=== PATIENT | female | born 1970 | race Caucasian/White ===

== ENCOUNTER 2021-07-11 11:25 | Emergency (ER) | payer OTHER, SELFPAY ==
--- NOTE | ~2021-07-11 | CT_ITS ---
EXAMINATION: CT HEAD WITHOUT CONTRAST CLINICAL INFORMATION: Dizziness and increased blood pressure. Rule out bleed. COMPARISON: None TECHNIQUE: Contiguous axial imaging was performed from the skull base to vertex without intravenous administration of contrast. This CT examination was performed using dose optimization techniques as appropriate, variously including the following: *Automated exposure control *Adjustment of mA and/or kV according to patient size (this includes techniques or standardized protocols for targeted exams where dose is matched to indication/reason for exam; i.e. extremities or head) *Use of iterative reconstruction technique DLP: 637 mGy-cm FINDINGS: There is no evidence of acute intracranial hemorrhage or territorial infarction. No abnormal mass effect or midline shift is seen. Hanna to white matter differentiation is well preserved. No extra-axial fluid collections are identified. The ventricles are normal in size. There is no abnormal attenuation within the brain parenchyma. The osseous structures and soft tissues are normal. There is a small polyp or cyst in the left maxillary sinus. The mastoid air cells and visualized portions of the paranasal sinuses are otherwise clear. CT/CT head/brain wo con IMPRESSION: No acute intracranial findings..
--- NOTE | ~2021-07-11 | XR_ITS ---
EXAMINATION: XR CHEST CLINICAL INFORMATION: Chest pain COMPARISON: None TECHNIQUE: Frontal view of the chest was obtained. FINDINGS: No significant abnormality is noted involving the heart, lungs, mediastinum, bony thorax or soft tissues. XR/XR chest 1V IMPRESSION: Unremarkable examination.
[2021-07-11 11:43] VITALS: BP 160/91; PULSE 88; RESP 18; TEMP 36.2; O2SAT 98; BMI 27.9
--- NOTE | 2021-07-11 11:48 | ECG_ITS ---
Test Reason : hbp Blood Pressure : / mmHG Vent. Rate : 067 BPM Atrial Rate : 067 BPM P-R Int : 148 ms QRS Dur : 082 ms QT Int : 418 ms P-R-T Axes : 041 -42 -08 degrees QTc Int : 441 ms Normal sinus rhythm Left axis deviation Minimal voltage criteria for LVH, may be normal variant ( R in aVL ) Nonspecific ST and T wave abnormality Abnormal ECG No previous ECGs available Referred By: Generic ED Physician Electronically Signed By:Jagdish Kerr
[2021-07-11 12:40] LABS: MANUAL DIFF FLAG NO
[2021-07-11 12:48] LABS: Basophils Percent Auto 0.7 % (0-2); Eosinophils Absolute Auto 0.1 X10*3/uL (0.0-0.4); Eosinophils Percent Auto 1.6 % (0-4); Hematocrit 34.8 % (37.0-47.0); Hemoglobin 11.3 g/dl (12.0-16.0); Imm Gran Abs Auto 0.01 X10*3/uL (0.00-0.03); Imm Gran Pct Auto 0.2 % (0.0-0.4); Lymphocytes Absolute Auto 2.1 X10*3/uL (1.2-4.9); Lymphocytes Percent Auto 37.5 % (20-40); Mean Corpuscular HGB Conc 32.5 g/dl (31.0-35.0); Mean Corpuscular Hemoglobin 26.8 pg (27.0-33.0); Mean Corpuscular Volume 82.7 fL (80.0-98.0); Mean Platelet Volume 11.6 fL (9.4-12.3); Monocytes Absolute Auto 0.5 X10*3/uL (0.1-1.2); Monocytes Percent Auto 9.2 % (2-11); Neutrophils Absolute Auto 2.9 x10*3/uL (2.0-8.3); Neutrophils Percent Auto 50.8 % (45-73); Platelet Count 235 X10*3/uL (160-400); Red Blood Count 4.21 X10*6/uL (4.20-5.50); Red Cell Distribution Width 13.9 % (11.0-16.0); White Blood Count 5.6 X10*3/uL (4.8-10.8)
[2021-07-11 12:59] LABS: Anion Gap 13 (12-20); Blood Urea Nitrogen 5 mg/dL (9-16); Carbon Dioxide 26 mmol/L (22-29); Chloride 103 mmol/L (96-108); Creatinine Clr Calc Pharmacy 91.7; Estimated Glomerular Filt Rate > 60; Glucose Random 92 mg/dL (60-115); Potassium 3.2 mmol/L (3.3-5.1); Sodium 139 mmol/L (135-145)
[2021-07-11 13:07] LABS: Troponin-I High Sensitivity 4.7 ng/L (<3.5-17.0)
[2021-07-11 13:22] VITALS: BP 180/96; PULSE 76; RESP 14; O2SAT 98
--- NOTE | 2021-07-11 13:26 | ED_ITS ---
HPI - Chest Pain General Chief Complaint: Chest Pain Stated Complaint: HBP Time Seen by Provider: 07/11/21 13:25 Source: patient Mode of arrival: ambulatory Limitations: no limitations History of Present Illness HPI narrative: 51-year-old female came in for evaluation of high blood pressure reading at home. Patient is otherwise healthy no past health issue lately, patient noted that her blood pressure been reading high, yesterday patient felt lightheadedness and dizzy with mild headache, and chest pain. No blurry vision. Patient is not known to have high blood pressure her show however she is scheduled to see her PCP in a week to discuss the need of medication. Patient has no symptoms currently in the emergency department. Related Data Home Medications Medication Instructions Recorded Confirmed azelastine 0.05 % eye drops drp OPHTHALMIC (EYE) 07/11/21 azelastine 137 mcg (0.1 %) nasal 2 spray INTRANASAL BID 07/11/21 spray aerosol meloxicam 15 mg tablet 1 tab PO DAILY PRN 07/11/21 Allergies Allergy/AdvReac Type Severity Reaction Status Date / Time Penicillins Allergy Anaphylaxis Verified 07/11/21 11:46 Review of Systems Review of Systems: All other systems are reviewed and are negative Constitutional: Reports as per HPI and Reports no additional constitutional complaints Eyes: Reports as per HPI and Reports no additional eye complaints Reports system reviewed and no additional complaints, except as documented Cardiovascular: Reports as per HPI and Reports no additional cardiovascular c omplaints Respiratory: Reports as per HPI and Reports no additional respiratory complaints Gastrointestinal: Reports as per HPI and Reports no additional gastrointestinal complaints Genitourinary: Reports no additional female genitourinary complaints Musculoskeletal: Reports no additional musculoskeletal complaints Skin/Breast: Reports system reviewed and no additional complaints, except as docu Psychiatric: Reports no additional psychiatric complaints Endocrine: Reports no additional endocrine complaints Hematologic/Lymphatic: Reports no additional hematologic/lymphatic complaints Allergic/Immunologic: Reports no additional allergic/immunologic complaints Reports system reviewed and no additional complaints, except as documented and Reports Abnormal speech present [facility] Past Medical History Medical History HTN (hypertension) Social History Social History Advance Directives: No Advance Directives Information Provided: Yes Physical Exam Vital Signs: Vital Signs: Last Vital Signs Temp 98.6 F 07/11/21 15:00 Pulse 75 07/11/21 15:00 Resp 15 07/11/21 15:00 BP 144/91 H 07/11/21 15:00 Pulse Ox 99 07/11/21 15:00 BMI result Body Mass Index 27.9 vital signs have been reviewed as appeared to be correct. Blood pressure fady vated. Heart rate normal. Respiration rate normal. Temperature normal. Oxygen saturation normal. Appearance: Alert. Oriented X3. No acute distress. Head: Normal external exam. Normocephalic. Atraumatic. No Cameron signs noted. No raccoon eyes noted Eyes: PERRLA. EOMI. Conjunctiva and sclera normal. Eyelids normal. ENT: TM's Normal. Pharynx normal. Uvula midline. Moist mucous membranes. No trismus noted. No drooling noted. No muffled voice noted. Neck: Normal inspection. Neck supple. FROM. No adenopathy. Thyroid Normal. No meningeal signs. No neck mass noted. CVS: Normal heart rate and rhythm. Heart sound normal. No murmurs noted. Pulses normal throughout. Respiratory: No respiratory distress. Painless inspiration. Breath sounds normal. No wheezes/rales/rhonchi noted. Chest nontender. No accessory muscle usage noted or decreased air movement noted. Abdomen: Soft and nontender. Bowel sounds normal in all 4 quadrants. No distention noted. No organomegaly noted. No visible injury noted. Back: No CVA tenderness. Full range of motion noted. Skin: Skin warm and dry. Normal skin color. Normal skin turgor. No rashes/lesions/lacerations noted. Extremities: No lower extremity edema. Extremities exhibit normal range of motion. Extremities nontender. Neuro: Oriented X 3. Cranial nerve exam: II-XII are grossly intact No motor deficit. No sensory deficit. Reflexes normal. Course Course Course Narrative: Assessment and plan. 51-year-old female who has been having fluctuating blood pressure lately, patient scheduled to see her primary doctor in a week to discuss if patient need medication for blood pressure, felt lightheadedness and dizziness earlier today which resolving in the emergency department, initial blood pressure was elevated now is 144/91, patient had unremarkable workup including labs/EKG/head CT. Patient is scheduled to see her PCP in 8 days to discuss said the need of medication to control her blood pressure, patient was instructed to continue monitoring blood pressure and keep the appointment with her PCP. Labs are unremarkable except for mild anemia and a mild hypokalemia potassium was replaced in the emergency department. MDM - Chest Pain Lab Data Attestation: I reviewed the patient's lab results. Result diagrams: 07/11/21 12:27 07/11/21 12: Labs: Lab Results 07/11/21 07/11/21 07/11/21 Range/Units 12: 12: 12: WBC 5.6 (4.8-10.8) X10*3/uL RBC 4.21 (4.20-5.50) X10*6/uL Hgb 11.3 L (12.0-16.0) g/dl Hct 34.8 L (37.0-47.0) % MCV 82.7 (80.0-98.0) fL MCH 26.8 L (27.0-33.0) pg MCHC 32.5 (31.0-35.0) g/dl RDW 13.9 (11.0-16.0) % Plt Count 235 (160-400) X10*3/uL MPV 11.6 (9.4-12.3) fL Immature Gran % (Auto) 0.2 (0.0-0.4) % Neut % (Auto) 50.8 (45-73) % Lymph % (Auto) 37.5 (20-40) % [place] % (Auto) 9.2 (2-11) % Eos % (Auto) 1.6 (0-4) % Baso % (Auto) 0.7 (0-2) % Lymph # (Auto) 2.1 (1.2-4.9) X10*3/uL [place] # (Auto) 0.5 (0.1-1.2) X10*3/uL Eos # (Auto) 0.1 (0.0-0.4) X10*3/uL Baso # (Auto) 0.0 (0.0-0.2) X10*3/uL Abs Immat Gran (auto) 0.01 (0.00-0.03) X10*3/uL Absolute Neuts (auto) 2.9 (2.0-8.3) x10*3/uL Absolute Nucleated RBC 0.000 (0.0-0.012) X10*3/uL Nucleated RBC % (auto) 0.0 (0.0-0.2) /100WBC Sodium 139 (135-145) mmol/L Potassium 3.2 L (3.3-5.1) mmol/L Chloride 103 (96-108) mmol/L Carbon Dioxide 26 (22-29) mmol/L Anion Gap 13 (12-20) BUN 5 L (9-16) mg/dL Creatinine 0.73 (0.5-1.4) mg/dL Estim Creat Clear Calc 91.7 Estimated GFR > 60 Random Glucose 92 (60-115) mg/dL Calcium 9.0 (8.4-10.2) mg/dL Troponin I High Sens 4.7 (<3.5-17.0) ng/L Imaging Data Chest x-ray: Attestation: I personally reviewed and interpreted this imaging study as follows: Radiologist's impression: No acute pathology. Head CT: Attestation: I personally reviewed and interpreted this imaging study as follows: Radiologist's impression: no acute pathology. ECG Data ECG #1: Interpretation: Normal sinus rhythm at 67 beats per minutes, left axis deviation, normal intervals, no ST-T changes. Discharge Plan Discharge Clinical Impression: Hypertension, Hypokalemia Patient Disposition: Home, Self-Care Instructions: Hypertension (ED), Hypokalemia (ED) Prescriptions: No Action azelastine 0.05 % drops ophthalmic (eye) 0RF meloxicam 15 mg tablet 1 tab PO DAILY PRN (Reason: pain) 0RF azelastine 137 mcg (0.1 %) aerosol,spray 2 spray intranasal BID 0RF Referrals: Physician,Unknown J [Primary Care Provider] - Stand Alone Forms: Work/School Release
[2021-07-11 15:00] VITALS: BP 144/91; PULSE 75; RESP 15; TEMP 37; O2SAT 99
[2021-07-11] MEDS: Potassium Chloride Packet 20 MEQ PACKET 40 MEQ PO (16:04)
== END 2021-07-11 16:19 | disposition home or self-care (01) ==
PROVIDERS: Emergency Provider Emergency Medicine
DX: I10 Essential (primary) hypertension (principal); E87.6 Hypokalemia
CPT/HCPCS: 36415; 70450; 71045; 80048; 84484; 85025; 93005; 99284

== ENCOUNTER 2022-01-13 19:25 | Emergency (ER) | payer OTHER, SELFPAY ==
--- NOTE | ~2022-01-13 | XR_ITS ---
EXAMINATION: XR HAND, LEFT CLINICAL INFORMATION: Laceration COMPARISON: None TECHNIQUE: PA, lateral, and oblique views of the left hand. XR/XR hand LT min 3V FINDINGS/IMPRESSION: There is a laceration involving the palmar aspect of the second distal phalanx with accompanying avulsion fracture of the volar base of the distal phalanx without definite extension to the distal interphalangeal joint. No radiopaque foreign bodies.
[2022-01-13 19:34] VITALS: BP 146/86; PULSE 78; RESP 18; TEMP 36.4; O2SAT 97; BMI 27.9
--- NOTE | 2022-01-13 20:48 | ED_ITS ---
HPI - Wound/Laceration General Chief Complaint: Wound/Laceration Stated Complaint: left finger laceration Time Seen by Provider: 01/13/22 20:43 Source: patient Mode of arrival: ambulatory Limitations: no limitations History of Present Illness HPI narrative: 51-year-old female presents to the emergency department from urgent care following a laceration to the 1st finger on her left hand. Patient states that she injured her finger using an automatic zipper trimmer hand. Patient states she previously had numbness and tingling in her finger, however now states it is no longer numb, and it is now throbbing. She rates her pain an 8/10. Patient denies being on blood thinners. Up-to-date on tetanus shot. Patient denies fevers, chills, dizziness, chest pain, shortness of breath. Related Data Home Medications Medication Instructions Recorded Confirmed azelastine 0.05 % eye drops drp ophthalmic (eye) 07/11/21 azelastine 137 mcg (0.1 %) nasal 2 spray intranasal BID 07/11/21 spray aerosol meloxicam 15 mg tablet 1 tab PO DAILY PRN pain 07/11/21 Previous Rx's Medication Instructions Recorded clindamycin HCl 300 mg capsule 300 mg PO QID 7 days #28 caps 01/13/22 doxycycline hyclate 100 mg capsule 100 mg PO BID 10 days #20 caps 01/13/22 morphine 15 mg immediate release 15 mg PO BID PRN pain #10 tabs 01/13/22 tablet Allergies Allergy/AdvReac Type Severity Reaction Status Date / Time Penicillins Allergy Anaphylaxis Verified 07/11/21 11:46 Review of Systems Review of Systems: Constitutional : No Fever, No Chills, Cardiovascular : No Chest Pain, No SOB Respiratory : No Dyspnea Gastrointestinal : No abdominal pain Musculoskeletal : No Joint Swelling Skin : No rash, positive skin laceration Neuro : No Weakness, No Numbness Psych : No SI/HI Yes all other systems are reviewed and are negative [facility] Past Medical History Attestation statement: The following information was validated with the patient. Source: old records reviewed and nursing notes reviewed Medical History HTN (hypertension) Social History Social History Advance Directives: No Advance Directives Information Provided: No Physical Exam Vital Signs: Vital Signs: Last Vital Signs Temp 97.5 F 01/13/22 19:34 Pulse 78 01/13/22 19:34 Resp 18 01/13/22 19:34 BP 146/86 H 01/13/22 19:34 Pulse Ox 97 01/13/22 19:34 O2 Del Method 01/13/22 19:34 BMI result Body Mass Index 27.9 vss Appearance: Alert.? Oriented X3.? No acute distress.? Head: Normocephalic, atraumatic, no step-offs or deformities Eyes: Pupils equal, round and reactive to light.? Neck: Normal inspection.? Neck supple.? CVS: Normal heart rate and rhythm.? Pulses normal.? Respiratory: No respiratory distress.? Breath sounds normal.? Abdomen: Soft and nontender.? Skin: Skin warm and dry.? Normal skin color.? Normal skin turgor.? Extremities: No lower extremity edema.? No calf ttp. 5/5 strength to bilateral upper and lower extremities 2+ radial pulses equal and b/l normal. Cap refill less than 2 seconds to bilateral upper extremity digits. Normal sensation to fingers b/l. + irregular laceration (images attached) to left second digit. Pain with palpation DIP of 2nd L digit. Neuro: Oriented X 3.? No motor deficit.? No sensory deficit. CN 2-12 intact Course Reevaluation(s) Reevaluation #1: 9 sutures were placed to the finger, Xeroform dressing and bacitracin applied with tube gauze. Patient tolerated procedure well. Advised to have a wound check in 48 hours, advised her to keep the dressing on for 24 hours. Advised her to call and schedule an appointment with hand on Saturday or ortho. Educated on worrisome signs and symptoms and when to return. Patient given 1st dose of antibiotics here in the emergency department, will be discharged home with clindamycin and doxycycline as she has an amoxicillin anaphylactic reaction. This time I feel comfortable discharge home. Time: 22:28 MDM - Wound/Laceration [facility] Narrative Medical decision making narrative: 1942 51-year-old female presents with pain to the left 2nd digit status post cutting herself with a zipper trimmer hand. Up-to-date on tetanus shot. Physical examination with pain to palpation to the DIP of left 2nd digit, irreg ular laceration, images in chart. Neurovascularly intact. Concerns for underlying fracture/dislocation. Will obtain imaging. At this time is a suture. Medical Records Attestation: I reviewed the patient's medical records. Lab Data Attestation: I reviewed the patient's lab results. Procedures Laceration Laceration 1: Site: hand Side (If applicable): left Size (cm): 5 Description: stellate and irregular Depth: simple, single layer Local Anesthetic: lidocaine 1% Amount of anesthesia used (mL): 6 Skin layer closed with: vicryl Size (cm): 4-0 Number of sutures: 9 Technique: simple, interrupted Critical Care Time Critical Care Time Critical Care Time: No Discharge Plan Discharge Clinical Impression: Open fracture of finger, Laceration of finger Patient Disposition: Home, Self-Care Instructions: Laceration (ED), Finger Fracture (ED), Finger Laceration (ED), R.I.C.E. Treatment (ED) Additional Instructions: Take your medications as prescribed. If you were prescribed antibiotics today, it is important that you take your medication to their entirety, do not skip any doses, do not finish them early. Follow-up with your primary care provider this week. Please follow-up with orthopedics or hand surgeon, call Saturday to schedule and appointment. Information below. Return to the emergency department with new or worsening symptoms. Such as fevers, chills, chest pain, shortness of breath, nausea, vomiting, dizziness, headache, vision changes, lethargy, numbness, tingling In case of emergency call 911 Clindamycin can cause diarrhea if you develop diarrhea please discontinue this medication. And you should be seen by medical provider. Take probiotics with these antibiotics. Elevate extremity. RICE Return in 7-10 days for suture removal. Highly recommend wound check in 48 hours. Leave dressing on for 24 hours. Morphine is narcotic as been sent to your pharmacy for severe pain, please take this only as prescribed. Do not take alcohol with this. Do not drive or operate machinery while taking this. Do not sure this medication with anyone else. This medication can cause addiction. If pain is [id number] you cannot alternate ibuprofen every 6 hours, Tylenol every 4 as needed for pain or discomfort. You may require an MRI to further evaluate finger injury to rule out ligament or tendon injury. XR/XR hand LT min 3V FINDINGS/IMPRESSION: There is a laceration involving the palmar aspect of the second distal phalanx with accompanying avulsion fracture of the volar base of the distal phalanx without definite extension to the distal interphalangeal joint. No radiopaque foreign bodies.? Prescriptions: New doxycycline hyclate 100 mg capsule 100 mg PO BID 10 Days Qty: 20 0RF clindamycin HCl 300 mg capsule 300 mg PO QID 7 Days Qty: 28 0RF morphine 15 mg tablet 15 mg PO BID PRN (Reason: pain) Qty: 10 0RF Rx Instructions: Partial Fill upon patient request. No Action azelastine 0.05 % drops ophthalmic (eye) meloxicam 15 mg tablet 1 tab PO DAILY PRN (Reason: pain) azelastine 137 mcg (0.1 %) aerosol,spray 2 spray intranasal BID Referrals: [facility] [place] [facility] [Provider Group] - 2 weeks Sera Mariano MD [Physician] - 2 weeks Adam Colindres MD [Primary Care Provider] - 2 days Stand Alone Forms: Work/School Release
[2022-01-13] MEDS: Ondansetron ODT 4 MG TAB.RAPDIS TRANSLINGU (23:03)
[2022-01-13] MEDS: Morphine Sulfate Immed Release 15 MG TABLET PO (23:03)
--- NOTE | 2022-01-13 23:04 | PC.NURSE ---
Clindamycin 300mg requested from warehouse director as medication not available in the ED.
[2022-01-13] MEDS: Clindamycin HCL 300 MG CAPSULE PO (23:33)
== END 2022-01-13 23:39 | disposition home or self-care (01) ==
PROVIDERS: Emergency Provider Student in an Organized Health Care Education/Training Program; PCP Pediatrics
DX: S62.631B Displaced fracture of distal phalanx of left index finger, initial encounter for open fracture (principal); S61.211A Laceration without foreign body of left index finger without damage to nail, initial encounter; W29.3XXA Contact with powered garden and outdoor hand tools and machinery, initial encounter; Y93.H2 Activity, gardening and landscaping; Y92.017 Garden or yard in single-family (private) house as the place of occurrence of the external cause; Y99.9 Unspecified external cause status
CPT/HCPCS: 12001; 73130; 99283; 99284